=== PATIENT | male | born 1950 | race African-American/Black ===

== ENCOUNTER 2018-06-16 02:20 | Inpatient (IN) | payer MEDICARE, OTHER ==
[~2018-06-16] VITALS: Ht 170.2 cm; Wt 106.4 kg
[~2018-06-16 02:20] MED LIST: ACET-2154 PO; AMLO5TAB9 PO; ASPI81TA31 PO; BACL10TA PO; CARV12.52 PO; CEPH250C PO; CLON0.2T PO; DILT240C2 PO; DOCU100C36 PO; HYDR-3326 PO; HYDR-4354 PO; LACT10SO PO; LIDOCAINE PATCH5% TD; PANT40TA2 PO; ROBITUSSIN DM PO
--- NOTE | 2018-06-16 02:30 | NUR ---
Note undone in ED - 06/16/18 at 0422 by SIMON Pt brought in by [facility] from [facility] with c/o "severe UTI". Pt was sent here by PMD & UA shows positive result. Pt already has blevins catheter in place. Addendum: 06/16/18 at 0301 by SIMON Amendment undone in EDM - 06/16/18 at 0422 by SIMON Pt also arrived with colostomy bag in place. [id number].
--- NOTE | 2018-06-16 02:30 | NUR ---
Pt brought in by [facility] from [facility] with c/o "severe UTI". Pt was sent here by PMD & UA shows positive result. Pt already has suprapubic catheter in place. Addendum: 06/16/18 at 0423 by TPADOLINA Pt also has colostomy bag in place.
[2018-06-16] MEDS ORDERED: ACET-2030 PO (02:34)
[2018-06-16] MEDS ORDERED: HYDR4TAB4 PO (02:38)
[2018-06-16] MEDS ORDERED: CARV25TA2 PO (02:39)
[2018-06-16] MEDS ORDERED: HYDROMORPHONE 1 MG/1 ML DISP.SYRIN IV ONE (03:00)
[2018-06-16] MEDS ORDERED: ONDANSETRON 4 MG/2 ML VIAL IV ONE (03:00)
[2018-06-16] MEDS ORDERED: PIPERACILLIN SODIUM/TAZOBACTAM 3.375 G in IV DEXTROSE 5% 50 ML IV ONE (03:00)
[2018-06-16] MEDS ORDERED: IV NORMAL SALINE 1000 ML BAG IV ONE (03:00)
[2018-06-16] MEDS ORDERED: VANCOMYCIN IV 1,000 MG in IV DEXTROSE 5% 250 ML IV ONE (03:00)
[2018-06-16] MEDS ORDERED: ONDANSETRON 4 MG/2 ML VIAL ONE (03:07)
[2018-06-16] MEDS ORDERED: HYDROMORPHONE 1 MG/1 ML DISP.SYRIN ONE (03:07)
[2018-06-16] MEDS ORDERED: PIPERACILLIN/TAZOBACTAM/D5W 50 ML IV ONE (03:07)
[2018-06-16 03:11] LABS: BASOPHILS # (AUTO) 0.1 K/uL (0.0-8.0); BASOPHILS % (AUTO) 1.2 % (0.0-2.0); EOSINOPHILS # (AUTO) 0.2 K/uL (0.0-0.7); EOSINOPHILS % (AUTO) 2.9 % (0.0-7.0); HEMATOCRIT 37.9 % (36.7-47.1); LYMPHOCYTES # (AUTO) 2.8 K/uL (20.0-40.0); LYMPHOCYTES % (AUTO) 45.6 % (20.5-51.5); MEAN CORPUSCULAR HEMOGLOBIN 32.1 uug (23.8-33.4); MEAN CORPUSCULAR HGB CONC 34 g/dL (32.5-36.3); MEAN CORPUSCULAR VOLUME 93.5 fL (73.0-96.2); MONOCYTES # (AUTO) 0.5 K/uL (2.0-10.0); MONOCYTES % (AUTO) 8.6 % (0.0-11.0); NEUTROPHILS # (AUTO) 2.5 K/uL (1.8-8.9); NEUTROPHILS % (AUTO) 41.7 % (38.5-71.5); PLATELET COUNT (AUTO) 267 K/uL (152-348); RED BLOOD CELL COUNT(AUTO) 4.05 MIL/uL (4.06-5.63); WHITE BLOOD COUNT (AUTO) 6.1 K/uL (3.6-10.2)
--- NOTE | 2018-06-16 03:17 | NUR ---
Collected urine sample, sent to lab.
[2018-06-16] MEDS ORDERED: KETAMINE HCL 500 MG/10 ML INJ ONE (03:28)
[2018-06-16] MEDS ORDERED: LORAZEPAM 2 MG/1 ML VIAL IV ONE (03:30)
[2018-06-16] MEDS ORDERED: KETAMINE HCL 500 MG/10 ML INJ IV ONE (03:30)
[2018-06-16] MEDS ORDERED: LORAZEPAM 2 MG/1 ML VIAL ONE (03:33)
[2018-06-16 03:35] LABS: BILIRUBIN,DIRECT 0.1 mg/dL (0.0-0.2); BILIRUBIN,TOTAL 0.1 mg/dL (0.2-1.0); CREATININE 1.2 mg/dL (0.6-1.3); POTASSIUM 3.8 mmol/L (3.5-5.1); TOTAL PROTEIN, SERUM 6.1 g/dL (6.4-8.2)
--- NOTE | 2018-06-16 03:37 | NUR ---
Patient has become increasingly aggitated at this time. Patient is screaming " Oh Lord, [place] are real". ER MD is aware, new orders in place and carried out
[2018-06-16] MEDS ORDERED: VANCOMYCIN IV 200 ML ONE (03:40)
--- NOTE | 2018-06-16 03:40 | NUR ---
Pt placed on 2L NC. No s/s of respiratory distress noted at this time.
--- NOTE | 2018-06-16 04:04 | NUR ---
EPIC paged for panel call.
--- NOTE | 2018-06-16 04:12 | NUR ---
Dr. Jeremy ALVAREZ MD speaking to Tr David NP.
--- NOTE | 2018-06-16 04:18 | NUR ---
Pt. admitted to Med/Surg, under care of Tr David NP. Diagnosis: UTI Belongs List completed. MRSA swab done. Report given to floor nurse. BP 181/95, ER aware, & no new orders.
[2018-06-16 04:27] LABS: *BILIRUBIN,URIN NEGATIVE (NEGATIVE); *BLOOD, URINE 1+ (NEGATIVE); *CLARITY,URINE CLOUDY (CLEAR); *COLOR,URINE YELLOW (YELLOW); *KETONES,URINE 1+ (NEGATIVE); *UROBILINOGEN,URINE 0.2 E.U./dl (NORMAL); LEUKOCYTE ESTERASE ,URINE TRACE (NEGATIVE); NITRITE, URINE POSITIVE (NEGATIVE); PH,URINE 5.5 (5.0-8.0); UGLUCOSE NEGATIVE (NEGATIVE)
[2018-06-16] MEDS ORDERED: Z GUARD REMEDY PASTE 57 GM TUBE TOP PRN (04:30)
[2018-06-16] MEDS ORDERED: MAGNESIUM HYDROXIDE 30 ML LIQUID UDC PO PRN (04:30)
[2018-06-16] MEDS ORDERED: ONDANSETRON 4 MG/2 ML VIAL IV PRN (04:30)
[2018-06-16] MEDS ORDERED: ACETAMINOPHEN 325 MG TABLET PO PRN (04:30)
[2018-06-16] MEDS ORDERED: HYDROCODONE/APAP 5-325MG TABLET PO PRN (04:30)
[2018-06-16] MEDS ORDERED: LORAZEPAM 2 MG/1 ML VIAL IV PRN (04:30)
--- NOTE | 2018-06-16 04:30 | NUR ---
ADMITTED A 67 YEARS OLD MALE WITH DIAGNOSIS OF UTI. PATIENT LETHARGIC BUT AROUSE TO VERBAL AND TACTILE STIMULI, GOES BACK TO SLEEP RIGHT AFTER. COLOSTOMY INTACT. WITH SUPRAPUBIC CATHETER DRAINING VIA GRAVITY. NO SIGNS OF PAIN OR SOB AT THIS TIME. IV SITE ON LEFT AC INTACT AND PATENT. ROUTINE ADMISSION CARE DONE. PLAN OF CARE INITIATED.SAFETY MEASURE INITIATED AND CALL CHAMORRO WITHIN REACH.
[2018-06-16 04:40] LABS: BACTERIA,URINE MANY /HPF (NONE SEEN); SQUAMOUS EPITHELIAL CELL,UR FEW /HPF (NONE SEEN); WBC,URINE TNTC /HPF (0-3)
[2018-06-16 05:03] VITALS: BP 162/94
[2018-06-16] MEDS: CLONIDINE HCL 0.2 MG TABLET PO PRN (05:08)
[2018-06-16] MEDS ORDERED: ENOXAPARIN SODIUM 40 MG/0.4 ML DISP.SYRIN SQ ONE (05:30)
--- NOTE | 2018-06-16 05:58 | NUR ---
VANCOMYCIN AT 0600 NOT GIVEN TOO CLOSE FROM PREVIOUS ADMINISTRATION.
[2018-06-16] MEDS ORDERED: VANCOMYCIN IV 500 MG in IV DEXTROSE 5% 100 ML IV ONE (06:00)
[2018-06-16 06:28] VITALS: BP 164/87
[2018-06-16 06:57] LABS: MAGNESIUM 1.6 mg/dL (1.8-2.4); PHOSPHOROUS 3.4 mg/dL (2.5-4.9)
--- NOTE | 2018-06-16 07:03 | NUR ---
PATIENT ASLEEP BUT AROUSABLE, TOLERATE FLUIDS CHALLENGE STARTED FROM ER. NO COMPLAIN OF PAIN AT THIS TIME. PATIENT UNCOOPERATIVE WITH CARE, REFUSED LAB DRAWS, TAKES LOTS OF ENCOURAGEMENT BEFORE AGREEING TO DRAW BLOOD, COLOSTOMY BAG WITH BROWNISH COLOR FECES IN MODERATE AMOUNT, SUPRA PUBLIC DRAINING WITH YELLLOW COLOR URINE IN MODERATE AMOUNT. CONT TO MONITOR.
[2018-06-16] MEDS: PANTOPRAZOLE SODIUM 40 MG VIAL IV SCH (08:16)
[2018-06-16] MEDS ORDERED: PANTOPRAZOLE SODIUM 40 MG TABLET.DR PO SCH (09:00)
--- NOTE | 2018-06-16 09:32 | NUR ---
CLINICAL PHARMACY NOTE-VANCOMYCIN DOSING PER PHARMACY Subjective: To start Vancomycin dosing on this patient for UTI Objective: BUN 22 Scr 1.2 WBC 6.1 Temp 98.1 Ht 170.18cm Wt 106.396kg Assessment/Plan: Patient had vancomycin 1 gram today at 0345. Will continue Vancomycin 1500mg IV every 20hrs(first dose today at 1600) and draw trough by 4th dose(not ordered yet) for expected trough around 13. Will monitor daily.
[2018-06-16] MEDS: DOCUSATE SODIUM 100 MG CAPSULE PO SCH ×2 (09:54→17:00)
[2018-06-16] MEDS: CARVEDILOL 25 MG TABLET PO SCH ×2 (09:54→17:00)
[2018-06-16] MEDS: ASPIRIN 81 MG TAB.CHEW PO SCH (09:54)
[2018-06-16] MEDS: DILTIAZEM HCL CD 240 MG CAP.SR.24H PO SCH (09:55)
--- NOTE | 2018-06-16 10:55 | NUR ---
LAMBERTO VEGAS TECHNOLOGY PROJECT MANAGER MADE AWARE ABOUT PATIENTS HIGH BP DESPITE GIVING PRN MEDICATIONS AND SCHEDULED MEDICATIONS. LAST READING OF 206/97 PULSE 71 WAS A REPEAT. LAMBERTO WILL ADJUST MEDICATIONS ACCORDINGLY.
[2018-06-16] MEDS ORDERED: PIPERACILLIN/TAZOBACTAM/D5W 3.375 G in PREMIXED 1 EACH IV ONE (11:00)
[2018-06-16] MEDS ORDERED: hydrALAZINE HCL 20 MG/1 ML VIAL IV PRN (11:15)
[2018-06-16] MEDS ORDERED: IPRATROPIUM BROMIDE 0.5 MG/2.5 ML NEBU NEB PRN ×2 (11:45→12:00)
[2018-06-16] MEDS ORDERED: ALBUTEROL SULFATE 2.5 MG/ 0.5 ML NEBU NEB PRN (11:45)
[2018-06-16] MEDS: AMLODIPINE 5 MG TABLET PO SCH (12:11)
[2018-06-16] MEDS: HYDROMORPHONE 2 MG/1 ML DISP.SYRIN IV PRN ×5 (12:12→22:59)
[2018-06-16 12:20] VITALS: BP 183/93
[2018-06-16] MEDS: IV 1/2NS 1000 ML 1,000 ML IV PRN (12:21)
[2018-06-16] MEDS: ENALAPRILAT DIHYDRATE 1.25 MG/1 ML VIAL IV PRN (12:30)
[2018-06-16] MEDS: MAGNESIUM SULFATE/D5W 100 ML IV SCH ×2 (14:58→15:58)
[2018-06-16 16:32] VITALS: BP 107/57
[2018-06-16] MEDS: VANCOMYCIN IV 1,500 MG in IV DEXTROSE 5% 500 ML IV SCH (17:02)
--- NOTE | 2018-06-16 19:51 | NUR ---
SHIFT REPORT GIVEN TO AIR DEFENCE OFFICER NURSE. PATIENT HAS ACCESS ON LEFT AC 20G RUNNING 1/2 NS AT 72ML/HR. PLAN IS TO CONTINUE ANTIBIOTICS AND TREAT UTI. PATIENT IS NONCOMPLIANT AND HAS VERY AGGRESSIVE BEHAVIOR. PATIENT HAS COLOSTOMY BAG AND A SUPRAPUBIC CATHETER IN PLACE. PATIENT IS ALERT AND ORIENTED, BED IS IN LOW LOCKED POSITION WITH CALL LIGHT IN REACH.
[2018-06-16] MEDS: PIPERACILLIN/TAZOBACTAM/D5W 3.375 G in PREMIXED 1 EACH IV SCH (19:53)
[2018-06-16 20:00] VITALS: BP 120/63
[2018-06-16] MEDS: CULTURELLE CAPSULE PO SCH (20:05)
[2018-06-17] VITALS: BP 185/84
[2018-06-17] MEDS: AMLODIPINE 5 MG TABLET PO SCH ×4 (00:36→20:15)
[2018-06-17 01:30] VITALS: BP 185/84
[2018-06-17] MEDS: HYDROMORPHONE 2 MG/1 ML DISP.SYRIN IV PRN ×6 (02:56→23:03)
[2018-06-17] MEDS: PIPERACILLIN/TAZOBACTAM/D5W 3.375 G in PREMIXED 1 EACH IV SCH ×3 (02:56→19:00)
[2018-06-17 05:00] VITALS: BP 144/78
--- NOTE | 2018-06-17 06:20 | NUR ---
pt has been sleeping intermittently through the night and was easily awoken, pt complained of pain during the night, pain medication was given and was effective. pt at start of shift had and infiltrated IV left arm swollen. arm was elevated , swelling better now. pt's ostomy is intact soft stool noted, catheter is intact and patent draining yellow urine. pt is sinus rhythm on the monitor. all needs met safety measures are in place call light within reach, bed alarm is on. plan of care reported to incoming nurse.
[2018-06-17] MEDS: PANTOPRAZOLE SODIUM 40 MG VIAL IV SCH (06:59)
[2018-06-17] MEDS: ASPIRIN 81 MG TAB.CHEW PO SCH (09:22)
[2018-06-17] MEDS: DILTIAZEM HCL CD 240 MG CAP.SR.24H PO SCH (09:23)
[2018-06-17] MEDS: CARVEDILOL 25 MG TABLET PO SCH ×2 (09:24→18:24)
[2018-06-17] MEDS: CULTURELLE CAPSULE PO SCH ×2 (09:24→20:15)
[2018-06-17] MEDS: DOCUSATE SODIUM 100 MG CAPSULE PO SCH ×2 (09:24→18:14)
[2018-06-17] MEDS: ENOXAPARIN SODIUM 40 MG/0.4 ML DISP.SYRIN SQ SCH (09:28)
[2018-06-17 11:17] VITALS: BP 149/75
--- NOTE | 2018-06-17 11:30 | NUR ---
Minimal relief from pain med. Will notify
[2018-06-17] MEDS: VANCOMYCIN IV 1,500 MG in IV DEXTROSE 5% 500 ML IV SCH (13:28)
[2018-06-17 13:38] LABS: BASOPHILS # (AUTO) 0.1 K/uL (0.0-8.0); BASOPHILS % (AUTO) 0.9 % (0.0-2.0); EOSINOPHILS # (AUTO) 0.1 K/uL (0.0-0.7); EOSINOPHILS % (AUTO) 1.7 % (0.0-7.0); HEMATOCRIT 35.4 % (36.7-47.1); HEMOGLOBIN 11.8 g/dL (12.5-16.3); LYMPHOCYTES # (AUTO) 1.8 K/uL (20.0-40.0); MEAN CORPUSCULAR HEMOGLOBIN 31.4 uug (23.8-33.4); MEAN CORPUSCULAR HGB CONC 33 g/dL (32.5-36.3); MEAN CORPUSCULAR VOLUME 94.6 fL (73.0-96.2); MONOCYTES # (AUTO) 0.4 K/uL (2.0-10.0); MONOCYTES % (AUTO) 7.5 % (0.0-11.0); NEUTROPHILS # (AUTO) 3.5 K/uL (1.8-8.9); NEUTROPHILS % (AUTO) 59.9 % (38.5-71.5); PLATELET COUNT (AUTO) 230 K/uL (152-348); RED BLOOD CELL COUNT(AUTO) 3.75 MIL/uL (4.06-5.63); WHITE BLOOD COUNT (AUTO) 5.9 K/uL (3.6-10.2)
[2018-06-17 13:55] LABS: BILIRUBIN,TOTAL 0.2 mg/dL (0.2-1.0); CREATININE 1.3 mg/dL (0.6-1.3); MAGNESIUM 2.1 mg/dL (1.8-2.4); POTASSIUM 4.1 mmol/L (3.5-5.1); TOTAL PROTEIN, SERUM 6.1 g/dL (6.4-8.2)
--- NOTE | 2018-06-17 14:40 | NUR ---
CLINICAL PHARMACY NOTE-VANCOMYCIN DOSING PER PHARMACY Subjective: To continue Vancomycin dosing on this patient for UTI Objective: BUN 22 (28) Scr 1.2 (2/8) WBC 6.1 (28) Temp 97.6 Ht 170.18cm Wt 106.396kg Assessment/Plan: Will continue Vancomycin 1500mg IV every 20hrs(f2nd dose today at 1200) and draw trough by 4th dose(not ordered yet) for expected trough around 13. Will monitor daily.
[2018-06-17 15:29] VITALS: BP 157/81
[2018-06-17] MEDS ORDERED: HYDROMORPHONE HCL 2 MG TABLET PO PRN (15:30)
[2018-06-17 20:29] VITALS: BP 171/95
[2018-06-17] MEDS: diphenhydrAMINE 25 MG CAP PO PRN (23:03)
[2018-06-17] MEDS: ZOLPIDEM 5 MG TABLET PO PRN (23:04)
[2018-06-18] MEDS: HYDROMORPHONE 2 MG/1 ML DISP.SYRIN IV PRN ×7 (00:23→23:14)
[2018-06-18] MEDS: ZOLPIDEM 5 MG TABLET PO PRN (00:24)
[2018-06-18 00:47] VITALS: BP 145/70
[2018-06-18] MEDS: PIPERACILLIN/TAZOBACTAM/D5W 3.375 G in PREMIXED 1 EACH IV SCH ×2 (03:27→10:49)
[2018-06-18] MEDS: diphenhydrAMINE 25 MG CAP PO PRN (04:40)
[2018-06-18] MEDS: CLONIDINE HCL 0.2 MG TABLET PO PRN (04:40)
[2018-06-18 06:13] VITALS: BP 171/64
[2018-06-18 07:06] LABS: CREATININE 1.1 mg/dL (0.6-1.3); MAGNESIUM 1.8 mg/dL (1.8-2.4); POTASSIUM 3.7 mmol/L (3.5-5.1)
[2018-06-18 07:29] LABS: BASOPHILS % (AUTO) 0.2 % (0.0-2.0); EOSINOPHILS # (AUTO) 0.1 K/uL (0.0-0.7); EOSINOPHILS % (AUTO) 1.6 % (0.0-7.0); HEMATOCRIT 33.7 % (36.7-47.1); HEMOGLOBIN 11.1 g/dL (12.5-16.3); LYMPHOCYTES # (AUTO) 1.8 K/uL (20.0-40.0); LYMPHOCYTES % (AUTO) 28.8 % (20.5-51.5); MEAN CORPUSCULAR HEMOGLOBIN 31.4 uug (23.8-33.4); MEAN CORPUSCULAR HGB CONC 33 g/dL (32.5-36.3); MEAN CORPUSCULAR VOLUME 95.1 fL (73.0-96.2); MONOCYTES # (AUTO) 0.6 K/uL (2.0-10.0); MONOCYTES % (AUTO) 9.8 % (0.0-11.0); NEUTROPHILS # (AUTO) 3.7 K/uL (1.8-8.9); NEUTROPHILS % (AUTO) 59.6 % (38.5-71.5); PLATELET COUNT (AUTO) 215 K/uL (152-348); RED BLOOD CELL COUNT(AUTO) 3.54 MIL/uL (4.06-5.63); WHITE BLOOD COUNT (AUTO) 6.2 K/uL (3.6-10.2)
[2018-06-18] MEDS: DOCUSATE SODIUM 100 MG CAPSULE PO SCH ×2 (10:00→17:00)
[2018-06-18] MEDS: VANCOMYCIN IV 1,500 MG in IV DEXTROSE 5% 500 ML IV SCH (10:00)
[2018-06-18] MEDS: DILTIAZEM HCL CD 240 MG CAP.SR.24H PO SCH (10:00)
[2018-06-18] MEDS: CARVEDILOL 25 MG TABLET PO SCH ×2 (10:01→18:03)
[2018-06-18] MEDS: AMLODIPINE 5 MG TABLET PO SCH ×2 (10:02→20:51)
[2018-06-18] MEDS: ASPIRIN 81 MG TAB.CHEW PO SCH (10:03)
[2018-06-18] MEDS: ENOXAPARIN SODIUM 40 MG/0.4 ML DISP.SYRIN SQ SCH (10:05)
[2018-06-18] MEDS: PANTOPRAZOLE SODIUM 40 MG TABLET.DR PO SCH (10:06)
[2018-06-18 11:11] VITALS: BP 158/64
[2018-06-18] MEDS: CULTURELLE CAPSULE PO SCH ×2 (12:06→20:50)
[2018-06-18] MEDS: LACTULOSE 20 G/30 ML LIQUID UDC PO PRN (14:17)
--- NOTE | 2018-06-18 14:33 | NUR ---
CLINICAL PHARMACY NOTE-VANCOMYCIN DOSING PER PHARMACY Subjective: To continue Vancomycin dosing on this 67 yo male patient for UTI Objective: BUN 17 Scr 1.1 WBC 6.2 Temp 98.8 Ht 170.18cm Wt 106.396kg Assessment/Plan: Since srcr has decreased, will change dose from vancomycin 1500mg IV every 20hrs to vanco 1500mg IVPB q17h for predicted vanco trough level of 15.5 mcg/ml at steady state. 1st dose today at 1000) and draw trough by 4th dose(not ordered yet). Will monitor daily & adjust the dose if needed.
[2018-06-18 15:06] VITALS: BP 127/61
[2018-06-18] MEDS: VALSARTAN 80 MG TABLET PO SCH (15:15)
[2018-06-18 20:42] VITALS: BP 176/97
[2018-06-19] VITALS (7 sets, daily range): BP systolic 130–185; BP diastolic 62–84
[2018-06-19] MEDS: IV 1/2NS 1000 ML 1,000 ML IV PRN (00:13)
[2018-06-19] MEDS: diphenhydrAMINE 25 MG CAP PO PRN (00:24)
[2018-06-19] MEDS: PIPERACILLIN/TAZOBACTAM/D5W 3.375 G in PREMIXED 1 EACH IV SCH ×2 (02:45→03:20)
--- NOTE | 2018-06-19 02:46 | NUR ---
Patient refused abx at the scheduled time 1900. Now, he has finally agreed. Will continue to monitor.
[2018-06-19] MEDS ORDERED: VANCOMYCIN IV 1,500 MG in IV DEXTROSE 5% 500 ML IV SCH (03:00)
[2018-06-19] MEDS: HYDROMORPHONE 2 MG/1 ML DISP.SYRIN IV PRN ×5 (03:07→20:11)
[2018-06-19] MEDS: PANTOPRAZOLE SODIUM 40 MG TABLET.DR PO SCH (07:16)
[2018-06-19] MEDS: ASPIRIN 81 MG TAB.CHEW PO SCH (09:00)
[2018-06-19] MEDS: DILTIAZEM HCL CD 240 MG CAP.SR.24H PO SCH (09:01)
[2018-06-19] MEDS: CULTURELLE CAPSULE PO SCH ×2 (09:01→20:10)
[2018-06-19] MEDS: AMLODIPINE 5 MG TABLET PO SCH ×2 (09:01→20:45)
[2018-06-19] MEDS: CARVEDILOL 25 MG TABLET PO SCH ×2 (09:01→17:30)
[2018-06-19] MEDS: VALSARTAN 80 MG TABLET PO SCH (09:01)
[2018-06-19] MEDS: DOCUSATE SODIUM 100 MG CAPSULE PO SCH ×2 (09:02→17:30)
[2018-06-19] MEDS: ENOXAPARIN SODIUM 40 MG/0.4 ML DISP.SYRIN SQ SCH (09:08)
[2018-06-19] MEDS: MEROPENEM 0.5 G in IV NORMAL SALINE 50 ML IV SCH ×2 (11:54→19:47)
[2018-06-19] MEDS ORDERED: MERO500V IV (12:14)
[2018-06-19] MEDS ORDERED: CARV25TA2 PO (12:14)
[2018-06-19] MEDS ORDERED: AMLO5TAB9 PO (12:14)
[2018-06-19] MEDS ORDERED: VALS80TA2 PO (12:14)
[2018-06-19] MEDS: CLONIDINE HCL 0.2 MG TABLET PO PRN ×2 (17:30→23:15)
--- NOTE | 2018-06-19 19:20 | NUR ---
RECEIVED PT AWAKE, ALERT AND ORIENTEDX2. PT SHOWS NO SIGNS OF DISTRESS. PT IV INTACT. COLOSTOMY INTACT. SUPRAPUBIC INTACT. CALL LIGHT WITHIN REACH. SAFETY AND COMFORT PROVIDED. WILL CONTINUE TO MONITOR.
[2018-06-19] MEDS ORDERED: LORAZEPAM 2 MG/1 ML VIAL IV ONE (21:40)
[2018-06-19] MEDS: ENALAPRILAT DIHYDRATE 1.25 MG/1 ML VIAL IV PRN (22:11)
[2018-06-19] MEDS ORDERED: METOPROLOL TARTRATE 5 MG/5 ML VIAL IVP ONE (23:55)
[2018-06-20] VITALS (10 sets, daily range): BP systolic 161–204; BP diastolic 70–98
--- NOTE | 2018-06-20 01:31 | NUR ---
AT 2011H.PT GIVEN DILAUDID AT 9/10 PAIN SCALE FOR COMPLAINT OF PAIN ON HIS ARMS AND BACK. AT 2146 PT GIVEN ATIVAN 1MG ONETIME DOCTOR CREW PERSON PRESCRIBED PT WAS AGITATED. PT TOLERATED WELL THE MEDICATION HOWEVER PT BLOOD PRESSURE WAS STILL HIGH 197/95. LAMBERTO VEGAS NP ORDERED TO GIVE THE VASOTEC PRN AND GAVE AT 2211H. AFTER 15 MINUTES PT BLOOD PRESSURE WAS 208/117. NOTIFY THE DOCTOR CREW PERSON. DOCTOR ORDERED TO GIVE CATAPRESS PRN AND WAS GIVEN AT 2230H. LAMBERTO VEGAS NP ORDERED 10MG LOPRESSOR IV ONETIME AT 2335H FOR BLOOD PRESSURE 209/95. PT WAS ORDERED TO PUT TO TELEMETRY FOR MONITORING SINCE PT WAS GOING TO GET LOPRESSOR. AT 0025H PT BLOOD PRESSURE WAS 189/90 AND 75 HEART RATE. PT ASYMPTOMATIC. PT STABLE IN NO ACUTE DISTRESS. PT DISCHARGE ORDER WAS CANCELLED . WILL CONTINUE TO MONITOR.CALLED [facility] THAT PT WILL STAY IN [facility].
[2018-06-20] MEDS ORDERED: MEROPENEM 500 MG VIAL IV ONE (02:38)
[2018-06-20] MEDS: MEROPENEM 0.5 G in IV NORMAL SALINE 50 ML IV SCH ×4 (03:10→18:29)
[2018-06-20] MEDS: ENALAPRILAT DIHYDRATE 1.25 MG/1 ML VIAL IV PRN ×2 (05:25→13:18)
[2018-06-20] MEDS: PANTOPRAZOLE SODIUM 40 MG TABLET.DR PO SCH (06:30)
--- NOTE | 2018-06-20 06:31 | NUR ---
PT SLEPT INTERMITTENTLY. PT SHOWS NO SIGNS OF ACUTE DISTRESS. IV INTACT. SUPRAPUBIC CATH INTACT AND DWELLING YELLOW COLORED URINE.COLOSTOMY BAG INTACT. PT WAS GIVEN ANOTHER VASOTEC PT ASYMPTOMATIC. SHOWS NO SIGNS OF ACUTE DISTRESS..SAFETY AND COMFORT PROVIDED. WILL ENDORSE ACCORDINGLY TO INCOMING NURSE FOR CONTINUITY OF CARE.
[2018-06-20] MEDS: CARVEDILOL 25 MG TABLET PO SCH ×2 (08:48→17:07)
[2018-06-20] MEDS: VALSARTAN 80 MG TABLET PO SCH ×2 (08:48→21:19)
[2018-06-20] MEDS: AMLODIPINE 5 MG TABLET PO SCH ×2 (08:48→21:19)
[2018-06-20] MEDS: DILTIAZEM HCL CD 240 MG CAP.SR.24H PO SCH (08:49)
[2018-06-20] MEDS: DOCUSATE SODIUM 100 MG CAPSULE PO SCH ×2 (08:49→17:04)
[2018-06-20] MEDS: CULTURELLE CAPSULE PO SCH ×2 (08:49→21:18)
[2018-06-20] MEDS: ASPIRIN 81 MG TAB.CHEW PO SCH (08:49)
[2018-06-20] MEDS: ENOXAPARIN SODIUM 40 MG/0.4 ML DISP.SYRIN SQ SCH (08:50)
[2018-06-20] MEDS: CLONIDINE HCL 0.2 MG TABLET PO PRN (09:11)
--- NOTE | 2018-06-20 09:30 | NUR ---
Patient anxious and irritable this am, shouting when attempting to redirect to check vitals signs, labile. refusing frequent redirection. patient refusing medications one minute then refusing. patient Midline noted to have some resistance when attempting to flush. unable to safely access line at this time, nursing fabrication and assembly supervisor notified. Midline to be accessed by midline/picc line nurse. patient frequently touching line, verbalized its working , patient redirected we are unable to safely administer meds, patient tugging on line, patient at risk for dislodging line. Patient requires frequent redirection, demanding and labile. Poor insight and judgement. patient provided with PRN Clonidine this am continues hypertensive.
--- NOTE | 2018-06-20 10:15 | NUR ---
Patient continues angry and shouting that he wants his IV pain med, patient needs continued redirection, patient sitting up in bed and getting in his wheelchair, redirected about isolation, patient labile and shouting, spitting on the floor. patient offered to change out of wet gown that he spilled coffee on, refuses to respond, falling asleep. continue to redirect.
--- NOTE | 2018-06-20 11:00 | NUR ---
IV ANTIBIOTIC NOT GIVEN DUE TO CURRENT MIDLINE IS NOT FUNCTIONING , WAITING FOR MIDLINE NURSE. TRIED TO INSERT IV, UNABLE TO INSERT DUE TO PATIENT BEING HARD STICK.
[2018-06-20] MEDS: HYDROMORPHONE 2 MG/1 ML DISP.SYRIN IV PRN ×3 (13:18→21:16)
--- NOTE | 2018-06-20 13:20 | NUR ---
patient previously lined Kinked, new line inserted and functioning, patient sleeping intermittently in bed, no distress noted. calm. patient continues hypertensive 175/96 , hr 71. patient PRN clonidine 0.2mg not effective this am, Administer IV vasotec, slow IV push over 5 minutes.
--- NOTE | 2018-06-20 15:12 | NUR ---
PT not npo for renal artery duplex. Spoke to Ivette kearns, requested pt npo for tmrw AM
[2018-06-20] MEDS ORDERED: VALSARTAN 80 MG TABLET PO ONE (15:15)
--- NOTE | 2018-06-20 15:57 | NUR ---
PATIENT REFUSES ADDITIONAL DOSE OF DIOVAN, PATIENT IRRITABLE AND ANGRY, SHOUTING REDIRECTED, STATING THAT WE ARE JUST TRYING TO KILL HIM. PATIENT REQUESTED TO SPEAK MD REGARDING MEDICATIONS, WILL ENDORSE TO MD. CONTINUE TO MONITOR
--- NOTE | 2018-06-20 19:00 | NUR ---
PATIENT IN BED, CONTINUE IN CONTACT ISOLATION, PAIN MEDS GIVEN AND CONTINUE ON ANTIBIOTIC FOR UTI. BED ON LOW POSITION AND SIDE RAILS UPX2. WILL CONTINUE TO MONITOR AND CALL LIGHT WITHIN REACH AND ALL NEEDS ATTENDED.
[2018-06-20] MEDS ORDERED: VALSARTAN 160 MG TABLET PO SCH ×2 (21:00)
[2018-06-20] MEDS: CLONIDINE HCL 0.2 MG TABLET PO SCH (21:18)
[2018-06-20] MEDS: diphenhydrAMINE 25 MG CAP PO PRN (22:21)
[2018-06-20] MEDS: LACTULOSE 20 G/30 ML LIQUID UDC PO PRN (23:21)
[2018-06-20] MEDS: ZOLPIDEM 5 MG TABLET PO PRN (23:38)
[2018-06-21 00:20] VITALS: BP 168/94
--- NOTE | 2018-06-21 00:23 | NUR ---
Patient NPO after Midnight per MD instruction. Will continue to monitor
[2018-06-21] MEDS: HYDROMORPHONE 2 MG/1 ML DISP.SYRIN IV PRN ×4 (01:18→13:11)
[2018-06-21] MEDS: MEROPENEM 0.5 G in IV NORMAL SALINE 50 ML IV SCH ×2 (03:02→10:35)
[2018-06-21 04:00] VITALS: BP 165/80
[2018-06-21] MEDS: CLONIDINE HCL 0.2 MG TABLET PO SCH ×2 (04:30→12:53)
[2018-06-21] MEDS: PANTOPRAZOLE SODIUM 40 MG TABLET.DR PO SCH (07:00)
[2018-06-21] MEDS: ASPIRIN 81 MG TAB.CHEW PO SCH (09:00)
[2018-06-21] MEDS ORDERED: VALSARTAN 160 MG TABLET PO SCH (09:00)
[2018-06-21] MEDS: DILTIAZEM HCL CD 240 MG CAP.SR.24H PO SCH (09:04)
[2018-06-21] MEDS: DOCUSATE SODIUM 100 MG CAPSULE PO SCH (09:05)
[2018-06-21] MEDS: CULTURELLE CAPSULE PO SCH (09:05)
[2018-06-21] MEDS: VALSARTAN 80 MG TABLET PO SCH (09:06)
[2018-06-21] MEDS: AMLODIPINE 5 MG TABLET PO SCH (09:06)
[2018-06-21] MEDS: ENOXAPARIN SODIUM 40 MG/0.4 ML DISP.SYRIN SQ SCH (09:08)
[2018-06-21] MEDS: CARVEDILOL 25 MG TABLET PO SCH (09:22)
[2018-06-21 11:17] VITALS: BP 169/88
[2018-06-21] MEDS ORDERED: CLON0.2T12 PO (12:24)
[2018-06-21] MEDS ORDERED: VALS80TA2 PO (12:24)
--- NOTE | 2018-06-21 14:40 | NUR ---
PT DC TO [facility] TODAY. REPORTED TO MIKI. PT DC WITH ALL BELONGINGS, VALUABLES, AND DC PACKET. PT DC WITH MIDLINE IN LEFT UPPER ARM, PATENT AND INTACT. PT REFUSED ASPIRIN IN THE MORNING. EXPLAINED TO PT ABOUT THE RISKS OF REFUSING MEDICATION. PT UNDERSTANDS CONSEQUENCES. PT TRANSPORTED VIA AMBULANCE.
[2018-06-21 15:51] VITALS: BP 149/69
== END 2018-06-21 14:40 | DRG 291 ==
LOC: ER 02:21 → MED 04:19 → TELE 11:54 → MED 06-19 11:37 → TELE 06-19 23:45
PROVIDERS: ADMIT Nurse Practitioner Acute Care; ATTEND Nurse Practitioner Acute Care
PROC: 05H633Z Insertion of Infusion Device into Left Subclavian Vein, Percutaneous Approach (ICD-10-PCS; 2018-06-17)
PROC: 05H633Z Insertion of Infusion Device into Left Subclavian Vein, Percutaneous Approach (ICD-10-PCS; principal; 2018-06-20)
DX: I13.0 Hypertensive heart and chronic kidney disease with heart failure and stage 1 through stage 4 chronic kidney disease, or unspecified chronic kidney disease (principal); I50.31 Acute diastolic (congestive) heart failure; N17.0 Acute kidney failure with tubular necrosis; E43 Unspecified severe protein-calorie malnutrition; N39.0 Urinary tract infection, site not specified; G82.20 Paraplegia, unspecified; G93.40 Encephalopathy, unspecified; E87.0 Hyperosmolality and hypernatremia; D68.69 Other thrombophilia; J44.1 Chronic obstructive pulmonary disease with (acute) exacerbation; I16.0 Hypertensive urgency; Z93.59 Other cystostomy status; E78.5 Hyperlipidemia, unspecified; I10 Essential (primary) hypertension; Z98.61 Coronary angioplasty status; B96.20 Unspecified Escherichia coli [E. coli] as the cause of diseases classified elsewhere; B95.2 Enterococcus as the cause of diseases classified elsewhere; Z16.12 Extended spectrum beta lactamase (ESBL) resistance; E66.9 Obesity, unspecified; E87.5 Hyperkalemia; F01.50 Vascular dementia, unspecified severity, without behavioral disturbance, psychotic disturbance, mood disturbance, and anxiety; I25.10 Atherosclerotic heart disease of native coronary artery without angina pectoris; N18.9 Chronic kidney disease, unspecified; K21.9 Gastro-esophageal reflux disease without esophagitis; N31.9 Neuromuscular dysfunction of bladder, unspecified; G89.4 Chronic pain syndrome; F17.210 Nicotine dependence, cigarettes, uncomplicated; Z86.73 Personal history of transient ischemic attack (TIA), and cerebral infarction without residual deficits; Z87.440 Personal history of urinary (tract) infections; Z68.36 Body mass index [BMI] 36.0-36.9, adult; K74.60 Unspecified cirrhosis of liver; W34.00XS Accidental discharge from unspecified firearms or gun, sequela; Z16.24 Resistance to multiple antibiotics; Z79.82 Long term (current) use of aspirin; R47.02 Dysphasia; Z93.3 Colostomy status; Z79.891 Long term (current) use of opiate analgesic
CPT/HCPCS: 36415; 36569; 70030-TC; 71045; 83605; 83735; 84100; 85025; 85730; 87040; 87077; 87086; 93005; A4663; C9113; G0378; J1170; J1650; J2060; J2185; J2405; J2543; J3370; J3475; J3490; J7030; J7050; J7060; Q0163

== ENCOUNTER 2018-08-15 23:33 | Inpatient (IN) | payer MEDICARE, OTHER ==
[~2018-08-15] VITALS: Ht 170.2 cm; Wt 104.3 kg
[2018-08-15 23:30] VITALS: BP 175/78
[~2018-08-15 23:33] MED LIST changes: +ACET-2030 PO; -ACET-2154 PO; -BACL10TA PO; -CARV12.52 PO; +CARV25TA2 PO; -CEPH250C PO; -CLON0.2T PO; +CLON0.2T12 PO; +HYDR4TAB4 PO; +MERO500V IV; -ROBITUSSIN DM PO; +VALS80TA2 PO
[2018-08-16] MEDS ORDERED: IPRATROPIUM BROMIDE 0.5 MG/2.5 ML NEBU NEB PRN (01:15)
[2018-08-16] MEDS ORDERED: ZOLPIDEM 5 MG TABLET PO PRN (01:15)
[2018-08-16] MEDS ORDERED: ACETAMINOPHEN 325 MG TABLET PO PRN (01:15)
[2018-08-16] MEDS ORDERED: ONDANSETRON 4 MG/2 ML VIAL IV PRN (01:15)
[2018-08-16] MEDS ORDERED: ALBUTEROL SULFATE 2.5 MG/3 ML NEBU NEB PRN (01:15)
[2018-08-16] MEDS ORDERED: HYDROCODONE/APAP 5-325MG TABLET PO PRN ×2 (01:15→08:15)
[2018-08-16] MEDS ORDERED: Z GUARD REMEDY PASTE 57 GM TUBE TOP PRN (01:15)
[2018-08-16 01:17] VITALS: BP 131/61
--- NOTE | 2018-08-16 02:41 | NUR ---
Pt arrived to unit 08/15 2346 via gurney accompanied by 2 [place] papeterie table assembler. on 515 hold up 08/18 at 2000 for suicide attempt, [facility]acer[facility]. Awake, A&Ox4. No s/s of acute distress noted. Refused to have his vital signs taken at first and was demanding to get food first. Allowed after much prompting and explaining. Pt also refused to head to toe body assessment. Became agitated with further offers and explanation. Pt verbalized he does not like to be looked at without covers. Will respect pt's right to refuse. Pt denies skin issues. Right wrist laceration noted with 6 sutures done by ER MD at [facility]. Site looks dry and clean, dry dressing noted with small amount of bright red blood. Suprapubic cath site in place and patent, draining mod amt of clear yellow urine. Colostomy to left lower abdomen noted. Pt prefers to have his colostomy site assessed and bag changed in am. No stool output noted to colostomy bag at this time. 1:1 sitter at bedside for safety. All safety precautions in place. Will continue to monitor.
--- NOTE | 2018-08-16 02:45 | NUR ---
Pt c/o 7/10 pain to maryuri arms and his back. Administered [place] 5/325mg PO and effective. Noted pt in bed sleeping post 45 mins.
--- NOTE | 2018-08-16 06:15 | NUR ---
Pt c/o of 11/15 pain to his arm and back again. Per pt [place] at 0155 was ineffective and he did not sleep all night. However, 1:1 sitter at bedside noted pt asleep x3 hrs straight. Offered [place] but pt requesting for something else that he was getting at his previous facility for pain management. Noted med recon with Dilaudid 4mg PO Q6hrs PRN. Will follow up with MAREN/. Addendum: 08/16/18 at 0645 by GEORGE COTTON RN Sent message to MAREN Garcia. Awaiting response.
--- NOTE | 2018-08-16 06:37 | NUR ---
Incoming call from Carmen WILDE of [facility] where pt resides and gave her update.
[2018-08-16] MEDS ORDERED: HYDROCODONE/APAP 10-325 MG TABLET PO PRN (08:15)
[2018-08-16] MEDS ORDERED: CARVEDILOL 25 MG TABLET PO SCH (08:15)
[2018-08-16 09:00] VITALS: BP 131/61
[2018-08-16] MEDS ORDERED: DOCUSATE SODIUM 100 MG CAPSULE PO SCH (09:00)
[2018-08-16] MEDS ORDERED: AMLODIPINE 5 MG TABLET PO SCH (09:00)
[2018-08-16] MEDS ORDERED: VALSARTAN 80 MG TABLET PO SCH (09:00)
[2018-08-16] MEDS ORDERED: ASPIRIN 81 MG TAB.CHEW PO SCH (09:00)
[2018-08-16] MEDS ORDERED: DILTIAZEM HCL CD 240 MG CAP.SR.24H PO SCH (09:00)
[2018-08-16] MEDS ORDERED: PANTOPRAZOLE SODIUM 40 MG TABLET.DR PO SCH (09:00)
[2018-08-16] MEDS ORDERED: risperiDONE 0.5 MG TABLET PO SCH (11:45)
[2018-08-16] MEDS ORDERED: CLONIDINE HCL 0.2 MG TABLET PO SCH (14:00)
== END 2018-08-16 11:24 | DRG 949 ==
LOC: MEDSURG3 23:33
PROVIDERS: ADMIT Nurse Practitioner Acute Care; ATTEND Internal Medicine
DX: S61.511D Laceration without foreign body of right wrist, subsequent encounter (principal); N17.0 Acute kidney failure with tubular necrosis; E43 Unspecified severe protein-calorie malnutrition; D68.69 Other thrombophilia; X78.9XXD Intentional self-harm by unspecified sharp object, subsequent encounter; N31.9 Neuromuscular dysfunction of bladder, unspecified; F01.50 Vascular dementia, unspecified severity, without behavioral disturbance, psychotic disturbance, mood disturbance, and anxiety; G89.4 Chronic pain syndrome; E66.9 Obesity, unspecified; Z68.36 Body mass index [BMI] 36.0-36.9, adult; J44.9 Chronic obstructive pulmonary disease, unspecified; E78.5 Hyperlipidemia, unspecified; F17.210 Nicotine dependence, cigarettes, uncomplicated; Z93.3 Colostomy status; Z86.73 Personal history of transient ischemic attack (TIA), and cerebral infarction without residual deficits; I25.10 Atherosclerotic heart disease of native coronary artery without angina pectoris; I25.2 Old myocardial infarction; I12.9 Hypertensive chronic kidney disease with stage 1 through stage 4 chronic kidney disease, or unspecified chronic kidney disease; N18.9 Chronic kidney disease, unspecified; M51.36 Other intervertebral disc degeneration, lumbar region; Z79.891 Long term (current) use of opiate analgesic
CPT/HCPCS: A4663; G0378

== ENCOUNTER 2018-08-16 11:00 | Inpatient (IN) | payer MEDICARE, OTHER ==
[~2018-08-16] VITALS: Ht 170.2 cm; Wt 109.3 kg
[2018-08-16] MEDS ORDERED: MAG HYDROX/AL HYDROX/SIMETH 30 ML LIQUID UDC PO PRN (14:15)
[2018-08-16] MEDS ORDERED: ACETAMINOPHEN 325 MG TABLET PO PRN (14:15)
[2018-08-16] MEDS ORDERED: MAGNESIUM HYDROXIDE 30 ML LIQUID UDC PO PRN (14:15)
[2018-08-16] MEDS ORDERED: CLONAZEPAM 0.5 MG TABLET PO SCH (14:15)
[2018-08-16 16:00] VITALS: BP 136/72
[2018-08-16] MEDS: risperiDONE 0.5 MG TABLET PO SCH ×2 (17:00→17:30)
[2018-08-16] MEDS: BENZTROPINE MESYLATE 0.5 MG TABLET PO SCH ×2 (17:00→17:30)
[2018-08-16] MEDS: NEOMY/BACITRAC/POLYMI OINT 28.35 GM TUBE TOP SCH (21:10)
[2018-08-16] MEDS: TEMAZEPAM 7.5 MG CAPSULE PO PRN (22:23)
[2018-08-16] MEDS: CLONIDINE HCL 0.2 MG TABLET PO SCH (22:45)
[2018-08-16] MEDS ORDERED: ACETAMINOPHEN ES 500 MG TABLET PO PRN (22:45)
[2018-08-17] MEDS: HYDROCODONE/APAP 10-325 MG TABLET PO PRN ×3 (04:53→23:09)
[2018-08-17] MEDS ORDERED: CLONIDINE HCL 0.2 MG TABLET ONE (04:59)
[2018-08-17] MEDS: CLONIDINE HCL 0.2 MG TABLET PO SCH ×3 (05:45→22:44)
[2018-08-17 07:30] VITALS: BP 164/87
[2018-08-17] MEDS: PANTOPRAZOLE SODIUM 40 MG TABLET.DR PO SCH (08:23)
[2018-08-17] MEDS: BENZTROPINE MESYLATE 0.5 MG TABLET PO SCH ×2 (08:23→17:07)
[2018-08-17] MEDS: ASPIRIN 81 MG TAB.CHEW PO SCH (08:23)
[2018-08-17] MEDS: DOCUSATE SODIUM 100 MG CAPSULE PO SCH ×2 (08:24→17:08)
[2018-08-17] MEDS: AMLODIPINE 5 MG TABLET PO SCH ×2 (08:35→20:47)
[2018-08-17] MEDS: CARVEDILOL 25 MG TABLET PO SCH ×2 (08:35→18:25)
[2018-08-17] MEDS: DILTIAZEM HCL CD 240 MG CAP.SR.24H PO SCH (08:36)
[2018-08-17] MEDS: VALSARTAN 80 MG TABLET PO SCH ×2 (08:36→20:45)
[2018-08-17] MEDS: risperiDONE 0.5 MG TABLET PO SCH ×3 (08:36→17:08)
[2018-08-17] MEDS: NICOTINE 21 MG/24HR PATCH TD SCH (10:13)
[2018-08-17] MEDS: NEOMY/BACITRAC/POLYMI OINT 28.35 GM TUBE TOP SCH (11:07)
[2018-08-17] MEDS: DIVALPROEX 125 MG TABLET.DR PO SCH ×2 (13:02→20:45)
[2018-08-17 16:00] VITALS: BP 136/70
[2018-08-17 20:00] VITALS: BP 132/75
[2018-08-18] MEDS: CLONAZEPAM 0.5 MG TABLET PO PRN (02:53)
[2018-08-18] MEDS: CLONIDINE HCL 0.2 MG TABLET PO SCH ×2 (06:31→15:51)
[2018-08-18] MEDS: HYDROCODONE/APAP 10-325 MG TABLET PO PRN ×3 (06:39→20:35)
[2018-08-18 07:30] VITALS: BP 123/72
[2018-08-18] MEDS: NEOMY/BACITRAC/POLYMI OINT 28.35 GM TUBE TOP SCH (09:00)
[2018-08-18] MEDS: CARVEDILOL 25 MG TABLET PO SCH ×2 (09:10→17:20)
[2018-08-18] MEDS: DIVALPROEX 125 MG TABLET.DR PO SCH ×3 (09:12→20:36)
[2018-08-18] MEDS: BENZTROPINE MESYLATE 0.5 MG TABLET PO SCH ×2 (09:12→17:20)
[2018-08-18] MEDS: DILTIAZEM HCL CD 240 MG CAP.SR.24H PO SCH (09:13)
[2018-08-18] MEDS: PANTOPRAZOLE SODIUM 40 MG TABLET.DR PO SCH (09:13)
[2018-08-18] MEDS: ASPIRIN 81 MG TAB.CHEW PO SCH (09:14)
[2018-08-18] MEDS: VALSARTAN 80 MG TABLET PO SCH ×2 (09:14→20:32)
[2018-08-18] MEDS: DOCUSATE SODIUM 100 MG CAPSULE PO SCH ×2 (09:15→17:20)
[2018-08-18] MEDS: AMLODIPINE 5 MG TABLET PO SCH ×2 (09:15→20:33)
[2018-08-18] MEDS: risperiDONE 0.5 MG TABLET PO SCH ×4 (09:15→20:34)
[2018-08-18] MEDS: NICOTINE 21 MG/24HR PATCH TD SCH (09:17)
[2018-08-18 16:00] VITALS: BP 140/68
[2018-08-19] MEDS: CLONIDINE HCL 0.2 MG TABLET PO SCH ×4 (02:20→23:27)
[2018-08-19 08:00] VITALS: BP 131/81
[2018-08-19] MEDS: NICOTINE 21 MG/24HR PATCH TD SCH (08:37)
[2018-08-19] MEDS: PANTOPRAZOLE SODIUM 40 MG TABLET.DR PO SCH (08:37)
[2018-08-19] MEDS: DIVALPROEX 125 MG TABLET.DR PO SCH ×4 (08:38→20:05)
[2018-08-19] MEDS: ASPIRIN 81 MG TAB.CHEW PO SCH (08:38)
[2018-08-19] MEDS: risperiDONE 0.5 MG TABLET PO SCH ×3 (08:38→20:05)
[2018-08-19] MEDS: VALSARTAN 80 MG TABLET PO SCH ×2 (08:44→21:21)
[2018-08-19] MEDS: BENZTROPINE MESYLATE 0.5 MG TABLET PO SCH ×3 (08:45→18:08)
[2018-08-19] MEDS: DILTIAZEM HCL CD 240 MG CAP.SR.24H PO SCH (08:45)
[2018-08-19] MEDS: AMLODIPINE 5 MG TABLET PO SCH ×2 (08:45→21:20)
[2018-08-19] MEDS: CARVEDILOL 25 MG TABLET PO SCH ×2 (08:46→18:08)
[2018-08-19] MEDS: DOCUSATE SODIUM 100 MG CAPSULE PO SCH ×2 (09:05→18:08)
[2018-08-19] MEDS: NEOMY/BACITRAC/POLYMI OINT 28.35 GM TUBE TOP SCH (09:05)
[2018-08-19] MEDS: HYDROCODONE/APAP 5-325MG TABLET PO PRN (09:10)
[2018-08-19 15:00] VITALS: BP 135/70
[2018-08-19] MEDS: CLONAZEPAM 0.5 MG TABLET PO PRN (20:05)
[2018-08-19] MEDS ORDERED: VALSARTAN 80 MG TABLET ONE (20:53)
[2018-08-19 21:08] VITALS: BP 132/71
[2018-08-19] MEDS: HYDROCODONE/APAP 10-325 MG TABLET PO PRN (21:28)
[2018-08-19] MEDS ORDERED: CLONIDINE HCL 0.1 MG TABLET ONE (23:24)
[2018-08-20] MEDS: TEMAZEPAM 7.5 MG CAPSULE PO PRN (01:40)
[2018-08-20] MEDS: CLONIDINE HCL 0.2 MG TABLET PO SCH ×3 (07:02→22:29)
[2018-08-20 07:30] VITALS: BP 141/70
[2018-08-20] MEDS: PANTOPRAZOLE SODIUM 40 MG TABLET.DR PO SCH (09:55)
[2018-08-20] MEDS: ASPIRIN 81 MG TAB.CHEW PO SCH (09:56)
[2018-08-20] MEDS: AMLODIPINE 5 MG TABLET PO SCH ×2 (09:56→20:49)
[2018-08-20] MEDS: DOCUSATE SODIUM 100 MG CAPSULE PO SCH ×2 (09:56→18:20)
[2018-08-20] MEDS: BENZTROPINE MESYLATE 0.5 MG TABLET PO SCH ×2 (09:56→18:20)
[2018-08-20] MEDS: risperiDONE 0.5 MG TABLET PO SCH ×2 (09:56→20:49)
[2018-08-20] MEDS: DIVALPROEX 125 MG TABLET.DR PO SCH ×3 (09:56→20:49)
[2018-08-20] MEDS: CARVEDILOL 25 MG TABLET PO SCH ×2 (09:57→18:20)
[2018-08-20] MEDS: NICOTINE 21 MG/24HR PATCH TD SCH (09:58)
[2018-08-20] MEDS: DILTIAZEM HCL CD 240 MG CAP.SR.24H PO SCH (12:05)
[2018-08-20] MEDS: NEOMY/BACITRAC/POLYMI OINT 28.35 GM TUBE TOP SCH (12:06)
[2018-08-20] MEDS: VALSARTAN 80 MG TABLET PO SCH ×2 (12:06→20:49)
[2018-08-20 15:39] VITALS: BP 148/78
[2018-08-20 19:51] VITALS: BP 147/93
[2018-08-21] MEDS: HYDROCODONE/APAP 10-325 MG TABLET PO PRN (02:13)
[2018-08-21] MEDS: CLONIDINE HCL 0.2 MG TABLET PO SCH ×3 (05:46→22:45)
[2018-08-21 07:30] VITALS: BP 173/86
[2018-08-21] MEDS: CARVEDILOL 25 MG TABLET PO SCH ×2 (08:00→17:07)
[2018-08-21] MEDS: NICOTINE 21 MG/24HR PATCH TD SCH (08:40)
[2018-08-21] MEDS: PANTOPRAZOLE SODIUM 40 MG TABLET.DR PO SCH (08:41)
[2018-08-21] MEDS: DOCUSATE SODIUM 100 MG CAPSULE PO SCH ×2 (08:41→17:06)
[2018-08-21] MEDS: risperiDONE 0.5 MG TABLET PO SCH (08:41)
[2018-08-21] MEDS: ASPIRIN 81 MG TAB.CHEW PO SCH (08:41)
[2018-08-21] MEDS: BENZTROPINE MESYLATE 0.5 MG TABLET PO SCH ×2 (08:41→17:06)
[2018-08-21] MEDS: AMLODIPINE 5 MG TABLET PO SCH ×2 (08:41→21:42)
[2018-08-21] MEDS: DILTIAZEM HCL CD 240 MG CAP.SR.24H PO SCH (08:45)
[2018-08-21] MEDS: NEOMY/BACITRAC/POLYMI OINT 28.35 GM TUBE TOP SCH (08:46)
[2018-08-21] MEDS: DIVALPROEX 250 MG TABLET.DR PO SCH ×3 (09:17→21:46)
[2018-08-21] MEDS: VALSARTAN 80 MG TABLET PO SCH ×2 (09:34→21:43)
[2018-08-21 15:15] VITALS: BP 143/64
[2018-08-21 20:10] VITALS: BP 141/75
[2018-08-21] MEDS: risperiDONE 2 MG TABLET PO SCH (21:41)
[2018-08-22] MEDS: CLONIDINE HCL 0.2 MG TABLET PO SCH ×3 (07:00→23:24)
[2018-08-22 07:30] VITALS: BP 175/75
[2018-08-22] MEDS: DOCUSATE SODIUM 100 MG CAPSULE PO SCH ×2 (08:12→16:06)
[2018-08-22] MEDS: risperiDONE 1 MG TABLET PO SCH (08:12)
[2018-08-22] MEDS: PANTOPRAZOLE SODIUM 40 MG TABLET.DR PO SCH (08:12)
[2018-08-22] MEDS: DIVALPROEX 250 MG TABLET.DR PO SCH ×3 (08:12→21:17)
[2018-08-22] MEDS: BENZTROPINE MESYLATE 0.5 MG TABLET PO SCH ×2 (08:12→16:06)
[2018-08-22] MEDS: AMLODIPINE 5 MG TABLET PO SCH ×2 (08:12→21:00)
[2018-08-22] MEDS: HYDROCODONE/APAP 10-325 MG TABLET PO PRN ×2 (08:13→21:23)
[2018-08-22] MEDS: ASPIRIN 81 MG TAB.CHEW PO SCH (08:13)
[2018-08-22] MEDS: DILTIAZEM HCL CD 240 MG CAP.SR.24H PO SCH (08:14)
[2018-08-22] MEDS: CARVEDILOL 25 MG TABLET PO SCH ×2 (08:14→17:08)
[2018-08-22] MEDS: NICOTINE 21 MG/24HR PATCH TD SCH (08:15)
[2018-08-22] MEDS: VALSARTAN 80 MG TABLET PO SCH ×2 (08:15→21:27)
[2018-08-22] MEDS: NEOMY/BACITRAC/POLYMI OINT 28.35 GM TUBE TOP SCH (08:16)
[2018-08-22] MEDS ORDERED: risperiDONE 0.5 MG TABLET PO SCH (09:00)
[2018-08-22 12:47] LABS: *BILIRUBIN,URIN NEGATIVE (NEGATIVE); *BLOOD, URINE NEGATIVE (NEGATIVE); *CLARITY,URINE SLIGHTLY CLOUDY (CLEAR); *COLOR,URINE YELLOW (YELLOW); *KETONES,URINE NEGATIVE (NEGATIVE); *UROBILINOGEN,URINE 0.2 E.U./dl (NORMAL); LEUKOCYTE ESTERASE ,URINE 1+ (NEGATIVE); NITRITE, URINE POSITIVE (NEGATIVE); PH,URINE 7.5 (5.0-8.0); UGLUCOSE NEGATIVE (NEGATIVE)
[2018-08-22 12:55] LABS: SQUAMOUS EPITHELIAL CELL,UR NONE SEEN /HPF (NONE SEEN)
[2018-08-22 12:56] LABS: BACTERIA,URINE FEW /HPF (NONE SEEN); RBC,URINE 0-3 /HPF (0-3)
[2018-08-22] MEDS: HYDROCODONE/APAP 5-325MG TABLET PO PRN (14:41)
[2018-08-22 16:17] VITALS: BP 122/93
[2018-08-22 20:00] VITALS: BP 152/70
[2018-08-22] MEDS: SULFAMETH/TRIMETH 800/160 MG TABLET PO SCH (21:17)
[2018-08-22] MEDS: risperiDONE 2 MG TABLET PO SCH (21:23)
[2018-08-23] MEDS: CLONIDINE HCL 0.2 MG TABLET PO SCH (06:03)
[2018-08-23 07:30] VITALS: BP 94/73
[2018-08-23] MEDS: CARVEDILOL 25 MG TABLET PO SCH (08:00)
[2018-08-23] MEDS: ASPIRIN 81 MG TAB.CHEW PO SCH (08:39)
[2018-08-23] MEDS: SULFAMETH/TRIMETH 800/160 MG TABLET PO SCH (08:39)
[2018-08-23] MEDS: DIVALPROEX 250 MG TABLET.DR PO SCH ×2 (08:39→13:15)
[2018-08-23] MEDS: risperiDONE 1 MG TABLET PO SCH (08:39)
[2018-08-23] MEDS: DOCUSATE SODIUM 100 MG CAPSULE PO SCH (08:39)
[2018-08-23] MEDS: BENZTROPINE MESYLATE 0.5 MG TABLET PO SCH (08:39)
[2018-08-23] MEDS: PANTOPRAZOLE SODIUM 40 MG TABLET.DR PO SCH (08:39)
[2018-08-23] MEDS: DILTIAZEM HCL CD 240 MG CAP.SR.24H PO SCH (08:39)
[2018-08-23] MEDS: NEOMY/BACITRAC/POLYMI OINT 28.35 GM TUBE TOP SCH (08:40)
[2018-08-23 08:41] VITALS: BP 94/73
[2018-08-23] MEDS: AMLODIPINE 5 MG TABLET PO SCH (08:41)
[2018-08-23] MEDS: VALSARTAN 80 MG TABLET PO SCH (08:41)
[2018-08-23] MEDS: NICOTINE 21 MG/24HR PATCH TD SCH (08:42)
[2018-08-23] MEDS: HYDROCODONE/APAP 5-325MG TABLET PO PRN (13:16)
== END 2018-08-23 14:00 | DRG 885 ==
LOC: GPS 11:55 → GPSOV3 08-18 20:39 → GPS 08-19 16:34
PROVIDERS: ADMIT Psychiatry & Neurology Psychiatry; ATTEND Internal Medicine
DX: F31.9 Bipolar disorder, unspecified (principal); F01.50 Vascular dementia, unspecified severity, without behavioral disturbance, psychotic disturbance, mood disturbance, and anxiety; E43 Unspecified severe protein-calorie malnutrition; N18.3 Chronic kidney disease, stage 3 (moderate); Z93.3 Colostomy status; G82.20 Paraplegia, unspecified; N39.0 Urinary tract infection, site not specified; D68.59 Other primary thrombophilia; I13.0 Hypertensive heart and chronic kidney disease with heart failure and stage 1 through stage 4 chronic kidney disease, or unspecified chronic kidney disease; F25.9 Schizoaffective disorder, unspecified; S61.511D Laceration without foreign body of right wrist, subsequent encounter; X78.1XXD Intentional self-harm by knife, subsequent encounter; K21.9 Gastro-esophageal reflux disease without esophagitis; W14.XXXS Fall from tree, sequela; X95.9XXS Assault by unspecified firearm discharge, sequela; I25.2 Old myocardial infarction; F17.210 Nicotine dependence, cigarettes, uncomplicated; Z79.82 Long term (current) use of aspirin; Z79.899 Other long term (current) drug therapy; Z86.73 Personal history of transient ischemic attack (TIA), and cerebral infarction without residual deficits; E78.5 Hyperlipidemia, unspecified; G89.4 Chronic pain syndrome; Z79.891 Long term (current) use of opiate analgesic; J44.9 Chronic obstructive pulmonary disease, unspecified; E66.9 Obesity, unspecified; Z68.37 Body mass index [BMI] 37.0-37.9, adult; R60.0 Localized edema; M51.36 Other intervertebral disc degeneration, lumbar region; I25.10 Atherosclerotic heart disease of native coronary artery without angina pectoris; I50.9 Heart failure, unspecified
CPT/HCPCS: 87086; A4663; A9150; G0378; J3490

== ENCOUNTER 2018-09-07 00:17 | Emergency (ER) | payer MEDICARE, OTHER ==
[~2018-09-07] VITALS: Ht 170.2 cm; Wt 112.5 kg
[2018-09-07] MEDS ORDERED: HYDROMORPHONE HCL 2 MG TABLET ONE (00:40)
[2018-09-07] MEDS ORDERED: ONDANSETRON ODT 4 MG TAB.RAPDIS ONE (00:40)
[2018-09-07] MEDS ORDERED: MAG-55 PO (00:42)
[2018-09-07] MEDS ORDERED: RISP2TAB23 PO (00:42)
[2018-09-07] MEDS ORDERED: BENZ0.5T43 PO (00:42)
[2018-09-07] MEDS ORDERED: CARV25TA PO (00:42)
[2018-09-07] MEDS ORDERED: DIVA250T PO (00:42)
[2018-09-07] MEDS ORDERED: RISP1TAB27 PO (00:42)
[2018-09-07] MEDS ORDERED: MAGN400O6 PO (00:42)
[2018-09-07] MEDS ORDERED: HYDROMORPHONE HCL 2 MG TABLET PO ONE (00:45)
[2018-09-07] MEDS ORDERED: ONDANSETRON ODT 4 MG TAB.RAPDIS SL ONE (00:45)
[2018-09-07 00:47] LABS: *BILIRUBIN,URIN NEGATIVE (NEGATIVE); *CLARITY,URINE TURBID (CLEAR); *COLOR,URINE YELLOW (YELLOW); *KETONES,URINE NEGATIVE (NEGATIVE); *UROBILINOGEN,URINE 0.2 E.U./dl (NORMAL); LEUKOCYTE ESTERASE ,URINE TRACE (NEGATIVE); NITRITE, URINE NEGATIVE (NEGATIVE); PH,URINE 5.5 (5.0-8.0); UGLUCOSE NEGATIVE (NEGATIVE)
[2018-09-07 00:49] LABS: *BLOOD, URINE TRACE (NEGATIVE)
[2018-09-07 00:54] LABS: BACTERIA,URINE FEW /HPF (NONE SEEN); MUCUS,URINE MANY /LPF (0-FEW); SQUAMOUS EPITHELIAL CELL,UR FEW /HPF (NONE SEEN)
--- NOTE | 2018-09-07 00:56 | NUR ---
Patient transported to CT in stable condition.
[2018-09-07 01:00] LABS: BASOPHILS # (AUTO) 0.1 K/uL (0.0-8.0); EOSINOPHILS # (AUTO) 0.2 K/uL (0.0-0.7); EOSINOPHILS % (AUTO) 2.8 % (0.0-7.0); HEMATOCRIT 30.1 % (36.7-47.1); HEMOGLOBIN 10.2 g/dL (12.5-16.3); LYMPHOCYTES # (AUTO) 2.7 K/uL (20.0-40.0); LYMPHOCYTES % (AUTO) 39.9 % (20.5-51.5); MEAN CORPUSCULAR HEMOGLOBIN 31.8 uug (23.8-33.4); MEAN CORPUSCULAR HGB CONC 34 g/dL (32.5-36.3); MEAN CORPUSCULAR VOLUME 93.6 fL (73.0-96.2); MONOCYTES # (AUTO) 0.9 K/uL (2.0-10.0); NEUTROPHILS # (AUTO) 2.9 K/uL (1.8-8.9); NEUTROPHILS % (AUTO) 43.3 % (38.5-71.5); PLATELET COUNT (AUTO) 235 K/uL (152-348); RED BLOOD CELL COUNT(AUTO) 3.22 MIL/uL (4.06-5.63); WHITE BLOOD COUNT (AUTO) 6.8 K/uL (3.6-10.2)
[2018-09-07 01:08] LABS: CREATININE 1.2 mg/dL (0.6-1.3); POTASSIUM 4.2 mmol/L (3.5-5.1)
--- NOTE | 2018-09-07 01:10 | NUR ---
Patient back from ct scan with no distress noted
[2018-09-07 01:23] LABS: BILIRUBIN,DIRECT 0.1 mg/dL (0.0-0.2); BILIRUBIN,TOTAL 0.2 mg/dL (0.2-1.0); TOTAL PROTEIN, SERUM 6.3 g/dL (6.4-8.2)
--- NOTE | 2018-09-07 02:49 | NUR ---
Called [facility] to transfer patient back to [facility]. ETA is 30mins. Trip #[id number]
[2018-09-07] MEDS ORDERED: NITROFURANTOIN/NITROFURAN MAC 100 MG CAPSULE PO ONE (03:00)
[2018-09-07] MEDS ORDERED: NITROFURANTOIN/NITROFURAN MAC 100 MG CAPSULE ONE (03:12)
--- NOTE | 2018-09-07 03:17 | NUR ---
Gave SBAR report to nurse at [facility]
--- NOTE | 2018-09-07 03:48 | NUR ---
Gave SBAR report to [facility] unit 165 who will transport patient back to [facility]/
[2018-09-07 03:54] VITALS: BP 110/76
== END 2018-09-07 03:55 | disposition home or self-care (01) ==
LOC: ER 00:19
DX: N30.90 Cystitis, unspecified without hematuria (principal); G89.4 Chronic pain syndrome; R10.11 Right upper quadrant pain; I10 Essential (primary) hypertension; I25.10 Atherosclerotic heart disease of native coronary artery without angina pectoris; K21.9 Gastro-esophageal reflux disease without esophagitis; Z88.8 Allergy status to other drugs, medicaments and biological substances; Z79.899 Other long term (current) drug therapy
CPT/HCPCS: 36415; 83690; 85025; 87077; 87086; A4663; Q0162